=== PATIENT | female | born 1980 | race Caucasian/White ===

== ENCOUNTER 2018-05-21 12:43 | Inpatient (IN) | payer MEDICAID, OTHER ==
[2018-05-21] MEDS: LACTATED RINGER'S 1,000 ML IV ×2 (13:58→21:04)
[2018-05-21 14:02] LABS: ADD UMIC YES; UR ASCORBIC ACID NEGATIVE (NEGATIVE); UR BACTERIA FEW /HPF (NONE SEEN); UR BILIRUBIN (Dip) NEGATIVE (NEGATIVE); UR BLOOD (Dip) NEGATIVE (NEGATIVE); UR CLARITY SLIGHTLY CLOUDY (CLEAR); UR COLOR YELLOW (YELLOW); UR GLUCOSE (Dip) NEGATIVE (NEGATIVE); UR KETONES (Dip) NEGATIVE (NEGATIVE); UR LEUKOCYTE ESTERASE (Dip) 3+ Leu/ul (NEGATIVE); UR NITRITE (Dip) NEGATIVE (NEGATIVE); UR RBC 4 /HPF (0-5); UR SQUAMOUS EPITHELIAL CELL FEW /HPF (FEW); UR TOTAL PROTEIN (Dip) NEGATIVE (NEGATIVE); UR UROBILINOGEN (Dip) NEGATIVE (NEGATIVE); UR WBC 4 /HPF (0-5)
[2018-05-21] MEDS: TERBUTALINE 1 MG/ML INJ SC (16:32)
[2018-05-21] MEDS: SOD CHLORIDE 0.9% 1,000 ML IV ×2 (16:32→21:44)
[2018-05-21 16:57] LABS: ADD MAN DIFF? NO
[2018-05-21 16:59] LABS: WHITE BLOOD COUNT 9.2 10^3/ul (4.8-10.8)
[2018-05-21 16:59] LABS: BASOPHIL # 0.1 10^3/ul (0.0-0.1); BASOPHILS % 0.5 % (0.0-2.0); EOSINOPHILS # 0.3 10^3/ul (0.0-0.5); EOSINOPHILS % 2.7 % (0.0-7.0); HEMATOCRIT 33.2 % (37.0-47.0); HEMOGLOBIN 11.3 g/dl (12.0-16.0); LYMPHOCYTES # 2.5 10^3/ul (0.8-2.9); LYMPHOCYTES % 27.1 % (15.0-51.0); MEAN CORPUSCULAR VOLUME 97.1 fl (82.0-101.0); MEAN PLATELET VOLUME 9.9 fl (7.4-10.4); MONOCYTE # 0.7 10^3/ul (0.3-0.9); MONOCYTES % 7.5 % (0.0-11.0); NEUTROPHIL # 5.6 10^3/ul (1.6-7.5); NEUTROPHILS % 60.8 % (39.0-77.0); PLATELET COUNT 172 10^3/UL (140-415); RED BLOOD COUNT 3.42 10^6/ul (4.20-5.40); RED CELL DISTRIBUTION WIDTH 13.8 % (11.5-14.5)
[2018-05-21] MEDS: CEFTRIAXONE 2 GM/50 ML (PMX) 50 ML IVPB (17:02)
[2018-05-21] MEDS ORDERED: MAGNESIUM SULFATE 4 GM/100 ML 100 ML (20:34)
[2018-05-21] MEDS: MAGNESIUM SULFATE 4 GM/100 ML 100 ML IV (20:51)
[2018-05-21] MEDS: BETAMET NA PHOS/AC(6 MG/ML) 5ML INJ IM (21:00)
[2018-05-21] MEDS: MAGNESIUM SULFATE 20 GM/500 ML 500 ML IV (21:27)
[2018-05-21] MEDS: ACETAMINOPHEN 325 MG TAB PO (21:28)
[2018-05-21 22:03] LABS: ALANINE AMINOTRANSFERASE 18 IU/L (13-69); ALBUMIN 2.9 g/dl (3.3-4.9); ALBUMIN/GLOBULIN RATIO 0.93; ALKALINE PHOSPHATASE 57 IU/L (42-121); ANION GAP 9 (8-16); ASPARTATE AMINO TRANSFERASE 14 IU/L (15-46); BILIRUBIN,INDIRECT 0.4 mg/dl (0-1.1); BILIRUBIN,TOTAL 0.4 mg/dl (0.2-1.3); BLOOD UREA NITROGEN 9 mg/dl (7-20); CALCIUM 8.5 mg/dl (8.4-10.2); CARBON DIOXIDE 21 mmol/L (21-31); CHLORIDE 108 mmol/L (97-110); CREATININE 0.58 mg/dl (0.44-1.00); GLUCOSE 121 mg/dl (70-220); POTASSIUM 3.3 mmol/L (3.5-5.1); SODIUM 135 mmol/L (135-144)
[2018-05-21 23:26] LABS: AMPHETAMINE/METHAMPHETAMINE Negative (NEGATIVE); BARBITURATES Negative (NEGATIVE); BENZODIAZEPINES Negative (NEGATIVE); CANNABINOIDS Negative (NEGATIVE); COCAINE Negative (NEGATIVE); OPIATES Negative (NEGATIVE)
[2018-05-22 01:19] LABS: MAGNESIUM 4.2 mg/dl (1.7-2.5)
[2018-05-22] MEDS: ACETAMINOPHEN 500 MG TAB PO ×2 (02:34→21:15)
[2018-05-22] MEDS: DIPHENHYDRAMINE 50 MG INJ IV (02:41)
[2018-05-22 06:06] LABS: ADD MAN DIFF? NO
[2018-05-22 06:09] LABS: WHITE BLOOD COUNT 9.5 10^3/ul (4.8-10.8)
[2018-05-22 06:09] LABS: BASOPHILS % 0.2 % (0.0-2.0); EOSINOPHILS % 0.2 % (0.0-7.0); HEMATOCRIT 33.2 % (37.0-47.0); HEMOGLOBIN 11.4 g/dl (12.0-16.0); LYMPHOCYTES # 0.9 10^3/ul (0.8-2.9); LYMPHOCYTES % 9.2 % (15.0-51.0); MEAN CORPUSCULAR HEMOGLOBIN 33.5 pg (29.0-33.0); MEAN CORPUSCULAR HGB CONC 34.3 g/dl (32.0-37.0); MEAN CORPUSCULAR VOLUME 97.6 fl (82.0-101.0); MEAN PLATELET VOLUME 10.1 fl (7.4-10.4); MONOCYTE # 0.1 10^3/ul (0.3-0.9); MONOCYTES % 1.4 % (0.0-11.0); NEUTROPHIL # 8.3 10^3/ul (1.6-7.5); NEUTROPHILS % 87.1 % (39.0-77.0); PLATELET COUNT 186 10^3/UL (140-415); RED CELL DISTRIBUTION WIDTH 13.7 % (11.5-14.5)
[2018-05-22 07:46] LABS: MAGNESIUM 4.9 mg/dl (1.7-2.5)
[2018-05-22] MEDS: MAGNESIUM SULFATE 20 GM/500 ML 500 ML IV ×2 (08:01→19:09)
[2018-05-22] MEDS: ACETAMINOPHEN 325 MG TAB PO ×2 (08:16→13:58)
[2018-05-22 08:40] LABS: ALANINE AMINOTRANSFERASE 18 IU/L (13-69); ALBUMIN 3.3 g/dl (3.3-4.9); ALBUMIN/GLOBULIN RATIO 1.06; ALKALINE PHOSPHATASE 79 IU/L (42-121); ANION GAP 11 (8-16); ASPARTATE AMINO TRANSFERASE 18 IU/L (15-46); BILIRUBIN,INDIRECT 0.3 mg/dl (0-1.1); BILIRUBIN,TOTAL 0.3 mg/dl (0.2-1.3); BLOOD UREA NITROGEN 7 mg/dl (7-20); CALCIUM 7.5 mg/dl (8.4-10.2); CARBON DIOXIDE 19 mmol/L (21-31); CHLORIDE 111 mmol/L (97-110); CREATININE 0.54 mg/dl (0.44-1.00); GLUCOSE 155 mg/dl (70-220); POTASSIUM 4.4 mmol/L (3.5-5.1); SODIUM 137 mmol/L (135-144); TOTAL PROTEIN 6.4 g/dl (6.1-8.1)
[2018-05-22] MEDS: SOD CHLORIDE 0.9% 1,000 ML IV (10:46)
[2018-05-22 13:27] LABS: MAGNESIUM 5.3 mg/dl (1.7-2.5)
[2018-05-22] MEDS: CEFTRIAXONE 2 GM/50 ML (PMX) 50 ML IVPB (16:59)
[2018-05-22 18:14] LABS: MAGNESIUM 5.4 mg/dl (1.7-2.5)
[2018-05-22] MEDS: BETAMET NA PHOS/AC(6 MG/ML) 5ML INJ IM (20:58)
[2018-05-23] MEDS: SOD CHLORIDE 0.9% 1,000 ML IV ×4 (00:12→20:14)
[2018-05-23] MEDS: DIPHENHYDRAMINE 50 MG CAP PO (00:13)
[2018-05-23 01:06] LABS: MAGNESIUM 4.5 mg/dl (1.7-2.5)
[2018-05-23] MEDS: ACETAMINOPHEN 325 MG TAB PO ×2 (04:20→10:21)
[2018-05-23 08:00] LABS: MAGNESIUM 4.3 mg/dl (1.7-2.5)
[2018-05-23] MEDS: MAGNESIUM SULFATE 20 GM/500 ML 500 ML IV (12:13)
[2018-05-23] MEDS: HYDROCODONE/APAP (5/325) TAB PO ×4 (13:53→23:47)
[2018-05-23] MEDS: CEFTRIAXONE 2 GM/50 ML (PMX) 50 ML IVPB (16:33)
[2018-05-24] MEDS: HYDROCODONE/APAP (5/325) TAB PO ×3 (03:14→10:45)
[2018-05-24] MEDS: SOD CHLORIDE 0.9% 1,000 ML IV (06:02)
[2018-05-24 08:51] LABS: ADD MAN DIFF? NO
[2018-05-24 08:56] LABS: BASOPHILS % 0.4 % (0.0-2.0); EOSINOPHILS # 0.1 10^3/ul (0.0-0.5); EOSINOPHILS % 1.2 % (0.0-7.0); HEMATOCRIT 30.9 % (37.0-47.0); HEMOGLOBIN 10.2 g/dl (12.0-16.0); LYMPHOCYTES # 1.4 10^3/ul (0.8-2.9); LYMPHOCYTES % 17.5 % (15.0-51.0); MEAN CORPUSCULAR HEMOGLOBIN 33.3 pg (29.0-33.0); MEAN PLATELET VOLUME 10.1 fl (7.4-10.4); MONOCYTE # 0.6 10^3/ul (0.3-0.9); MONOCYTES % 8.1 % (0.0-11.0); NEUTROPHIL # 5.5 10^3/ul (1.6-7.5); NEUTROPHILS % 70.5 % (39.0-77.0); PLATELET COUNT 176 10^3/UL (140-415); RED BLOOD COUNT 3.06 10^6/ul (4.20-5.40); RED CELL DISTRIBUTION WIDTH 14.1 % (11.5-14.5)
[2018-05-24 08:56] LABS: WHITE BLOOD COUNT 7.8 10^3/ul (4.8-10.8)
== END 2018-05-24 11:30 | disposition home or self-care (01) | DRG 781 ==
LOC: OBT 12:43 → PP1 05-23 09:39 → L-D 12:44 → OBT 15:57 → L-D 15:30
DX: O23.02 Infections of kidney in pregnancy, second trimester (principal); O09.522 Supervision of elderly multigravida, second trimester; Z3A.27 27 weeks gestation of pregnancy
CPT/HCPCS: 36415; 76775; 76815; 76817; 80053; 80307; 81001; 83735; 85025; 87086; 96360; 96365

== ENCOUNTER 2018-07-05 19:40 | Outpatient (CLI) | payer OTHER, MEDICAID ==
[2018-07-05 23:08] LABS: ADD UMIC YES; UR ASCORBIC ACID 40 mg/dL (NEGATIVE); UR BILIRUBIN (Dip) NEGATIVE (NEGATIVE); UR BLOOD (Dip) NEGATIVE (NEGATIVE); UR CALCIUM OXALATE CRYSTAL MANY /HPF (NONE SEEN); UR CLARITY CLOUDY (CLEAR); UR COLOR YELLOW (YELLOW); UR GLUCOSE (Dip) 2+ mg/dL (NEGATIVE); UR KETONES (Dip) TRACE mg/dL (NEGATIVE); UR LEUKOCYTE ESTERASE (Dip) NEGATIVE Leu/ul (NEGATIVE); UR MUCUS FEW /HPF (NONE SEEN); UR NITRITE (Dip) NEGATIVE (NEGATIVE); UR RBC 3 /HPF (0-5); UR SPECIFIC GRAVITY (Dip) 1.028 (1.003-1.030); UR SQUAMOUS EPITHELIAL CELL FEW /HPF (FEW); UR TOTAL PROTEIN (Dip) NEGATIVE (NEGATIVE); UR UROBILINOGEN (Dip) NEGATIVE (NEGATIVE); UR WBC 3 /HPF (0-5)
[2018-07-05 23:11] LABS: ADD MAN DIFF? NO
[2018-07-05 23:13] LABS: BASOPHILS % 0.4 % (0.0-2.0); EOSINOPHILS # 0.2 10^3/ul (0.0-0.5); EOSINOPHILS % 2.6 % (0.0-7.0); HEMATOCRIT 32.2 % (37.0-47.0); LYMPHOCYTES % 21.9 % (15.0-51.0); MEAN CORPUSCULAR HEMOGLOBIN 32.8 pg (29.0-33.0); MEAN CORPUSCULAR HGB CONC 34.2 g/dl (32.0-37.0); MEAN CORPUSCULAR VOLUME 96.1 fl (82.0-101.0); MEAN PLATELET VOLUME 10.2 fl (7.4-10.4); MONOCYTE # 0.8 10^3/ul (0.3-0.9); MONOCYTES % 9.3 % (0.0-11.0); NEUTROPHIL # 5.7 10^3/ul (1.6-7.5); NEUTROPHILS % 63.2 % (39.0-77.0); PLATELET COUNT 183 10^3/UL (140-415); RED BLOOD COUNT 3.35 10^6/ul (4.20-5.40); RED CELL DISTRIBUTION WIDTH 13.9 % (11.5-14.5)
[2018-07-05 23:13] LABS: WHITE BLOOD COUNT 9.1 10^3/ul (4.8-10.8)
== END 2018-07-05 23:44 | disposition home or self-care (01) ==
LOC: OBT 19:40 → L-D 19:41 → OBT 23:44
DX: O26.893 Other specified pregnancy related conditions, third trimester (principal); R10.2 Pelvic and perineal pain; O09.523 Supervision of elderly multigravida, third trimester; Z3A.33 33 weeks gestation of pregnancy
CPT/HCPCS: 76815; 76817; 76818; 81001; 85025

== ENCOUNTER 2018-07-06 11:31 | Outpatient (CLI) | payer OTHER ==
[2018-07-06 12:15] LABS: ADD UMIC YES; UR ASCORBIC ACID 20 mg/dL (NEGATIVE); UR BACTERIA FEW /HPF (NONE SEEN); UR BILIRUBIN (Dip) NEGATIVE (NEGATIVE); UR BLOOD (Dip) 3+ mg/dL (NEGATIVE); UR CLARITY SLIGHTLY CLOUDY (CLEAR); UR COLOR YELLOW (YELLOW); UR GLUCOSE (Dip) NEGATIVE (NEGATIVE); UR KETONES (Dip) 1+ mg/dL (NEGATIVE); UR LEUKOCYTE ESTERASE (Dip) NEGATIVE Leu/ul (NEGATIVE); UR MUCUS FEW /HPF (NONE SEEN); UR NITRITE (Dip) NEGATIVE (NEGATIVE); UR RBC 1 /HPF (0-5); UR SQUAMOUS EPITHELIAL CELL FEW /HPF (FEW); UR TOTAL PROTEIN (Dip) NEGATIVE (NEGATIVE); UR UROBILINOGEN (Dip) NEGATIVE (NEGATIVE); UR WBC 7 /HPF (0-5)
[2018-07-06] MEDS: ACETAMINOPHEN 325 MG TAB PO (12:38)
[2018-07-06] MEDS: LACTATED RINGER'S 1,000 ML IV (12:38)
== END 2018-07-06 15:35 | disposition home or self-care (01) ==
LOC: OBT 11:31 → L-D 11:31 → OBT 15:35
DX: O26.893 Other specified pregnancy related conditions, third trimester (principal); M54.9 Dorsalgia, unspecified; O09.523 Supervision of elderly multigravida, third trimester; Z3A.33 33 weeks gestation of pregnancy
CPT/HCPCS: 76775; 76818; 81001; 87086; 96360; 96361